=== PATIENT | male | born 1955 | race Caucasian/White ===

== ENCOUNTER 2022-07-04 10:56 | Inpatient (IN) | payer OTHER ==
[2022-07-04] MEDS ORDERED: ONDANSETRON 4 MG/2 ML VIAL IVPUSH ONE (11:52)
[2022-07-04] MEDS ORDERED: ACETAMINOPHEN 1000 MG/100 ML BAG IVPB ONE (11:53)
[2022-07-04] MEDS ORDERED: ONDANSETRON 4 MG/2 ML VIAL ONE (12:08)
[2022-07-04] MEDS ORDERED: ACETAMINOPHEN INJECTION 100 ML IVPB ONE (12:09)
[2022-07-04 12:37] LABS: BASO % 0.5 % (0-2.0); HEMATOCRIT 42.3 % (35.4-49); HEMOGLOBIN 15.1 GM/dL (11.7-16.9); LYMPH % 13.8 % (8-40); MCH 32.4 pg (25.7-33.7); MCHC 35.6 g/dl (32.0-35.9); MEAN PLT VOLUME 7.6 fl (7.5-11.1); MONO % 4.5 % (3.8-10.2); NEUT % 81.2 % (42.8-82.8); PLATELET COUNT 188 10^3/uL (134-434); RBC 4.64 M/mm3 (4.00-5.60); RDW 13.6 % (11.9-15.9); WHITE BLOOD COUNT 10.3 K/mm3 (4.0-10.0)
[2022-07-04 12:40] LABS: EPI CELLS 3 /uL (0-25.1); HYALINE CASTS 0 /uL (0-3.1); PH,URINE 5.5 (5.0-8.0); URINE APPEARANCE CLEAR; URINE BACTERIA 7 /uL (0-1359); URINE BILIRUBIN NEGATIVE (NEGATIVE); URINE COLOR YELLOW; URINE GLUCOSE (UA) NEGATIVE (NEGATIVE); URINE KETONE NEGATIVE (NEGATIVE); URINE LEUK ESTERASE NEGATIVE (NEGATIVE); URINE NITRITE NEGATIVE (NEGATIVE); URINE PROTEIN 1+ (NEGATIVE); URINE RBC 64 /uL (0-23.9); URINE UROBILINOGEN 0.2 mg/dL (0.2-1.0); URINE WBC 5 /uL (0-25.8)
[2022-07-04 13:00] LABS: CALCIUM 8.7 mg/dL (8.5-10.1)
[2022-07-04 13:01] LABS: BLOOD UREA NITROGEN 26.3 mg/dL (7-18)
[2022-07-04 13:04] LABS: CREATININE 1.5 mg/dL (0.55-1.3)
[2022-07-04 13:05] LABS: BILIRUBIN,TOTAL 0.9 mg/dL (0.2-1); TOT PROT 7.9 g/dl (6.4-8.2)
[2022-07-04] MEDS ORDERED: ONDANSETRON 4 MG/2 ML VIAL IVPUSH PRN (15:15)
[2022-07-04] MEDS ORDERED: ACETAMINOPHEN 325 MG TABLET (FP) PO PRN (15:15)
[2022-07-04] MEDS ORDERED: TAMSULOSIN HCL 0.4 MG CAP PO ONE (15:17)
[2022-07-04] MEDS ORDERED: TAMSULOSIN HCL 0.4 MG CAP ONE (15:57)
[2022-07-04] MEDS: LACTATED RINGERS SOLUTION 1,000 ML IV SCH (16:16)
[2022-07-04 19:01] VITALS: BMI 29.6
[2022-07-04] MEDS: KETOROLAC TROMETHAMINE 15 MG/ML VIAL IVPUSH PRN (22:05)
[2022-07-05] MEDS: LACTATED RINGERS SOLUTION 1,000 ML IV SCH ×2 (06:04→18:01)
[2022-07-05] MEDS: TAMSULOSIN HCL 0.4 MG CAP PO SCH (09:38)
[2022-07-05] MEDS ORDERED: ENOXAPARIN NA (PORCINE) 40 MG/0.4 ML DISP.SYRIN SQ SCH (10:00)
[2022-07-05 10:18] LABS: BASO % 0.4 % (0-2.0); EOS % 0.4 % (0-4.5); HEMATOCRIT 36.7 % (35.4-49); HEMOGLOBIN 13.1 GM/dL (11.7-16.9); LYMPH % 25.5 % (8-40); MCH 32.2 pg (25.7-33.7); MCHC 35.8 g/dl (32.0-35.9); MEAN CELL VOLUME 90.1 fl (80-96); MEAN PLT VOLUME 8.3 fl (7.5-11.1); MONO % 7.5 % (3.8-10.2); NEUT % 66.2 % (42.8-82.8); PLATELET COUNT 155 10^3/uL (134-434); RBC 4.08 M/mm3 (4.00-5.60); RDW 13.4 % (11.9-15.9); WHITE BLOOD COUNT 7.2 K/mm3 (4.0-10.0)
[2022-07-05] MEDS ORDERED: LACTATED RINGERS SOLUTION 1,000 ML IV SCH (10:22)
[2022-07-05 10:32] LABS: INR 1.16 (0.83-1.09); PROTHROMBIN TIME (PATIENT) 13.4 SEC (9.7-13.0)
[2022-07-05 10:34] LABS: ACTIVATED PTT 25.8 SECONDS (25.2-36.5)
[2022-07-05 10:44] LABS: ALBUMIN 3.3 g/dl (3.4-5.0); BLOOD UREA NITROGEN 24.3 mg/dL (7-18); CALCIUM 8.6 mg/dL (8.5-10.1)
[2022-07-05 10:47] LABS: CREATININE 1.3 mg/dL (0.55-1.3)
[2022-07-05 10:49] LABS: TOT PROT 6.3 g/dl (6.4-8.2)
[2022-07-05] MEDS ORDERED: cefTRIAXone SODIUM 1 GM VIAL ONE (12:41)
[2022-07-05] MEDS: CEFTRIAXONE 1 GM in DEXTROSE 5%-WATER - 50 ML IVPB SCH (12:47)
[2022-07-05] MEDS: KETOROLAC TROMETHAMINE 15 MG/ML VIAL IVPUSH PRN (22:47)
[2022-07-06] MEDS: LACTATED RINGERS SOLUTION 1,000 ML IV SCH ×2 (02:39→09:29)
[2022-07-06] MEDS: TAMSULOSIN HCL 0.4 MG CAP PO SCH (09:01)
[2022-07-06] MEDS: CEFTRIAXONE 1 GM in DEXTROSE 5%-WATER - 50 ML IVPB SCH (09:47)
[2022-07-06] MEDS ORDERED: PROPOFOL 20 ML ONE (14:19)
[2022-07-06] MEDS ORDERED: MIDAZOLAM HCL 2 MG/2 ML SINGLE DOSE VIAL ONE (14:19)
[2022-07-06] MEDS ORDERED: ONDANSETRON 4 MG/2 ML VIAL IVPUSH PRN ×3 (15:48→17:00)
[2022-07-06] MEDS ORDERED: LACTATED RINGERS SOLUTION 1,000 ML IV SCH ×3 (16:00→17:00)
[2022-07-06] MEDS ORDERED: KETOROLAC TROMETHAMINE 15 MG/ML VIAL IVPUSH PRN (17:00)
[2022-07-06] MEDS ORDERED: ACETAMINOPHEN 325 MG TABLET (FP) PO PRN (17:00)
[2022-07-06 22:53] VITALS: RESP 18
[2022-07-07] MEDS ORDERED: TAMSULOSIN HCL 0.4 MG CAP PO SCH (08:30)
[2022-07-07] MEDS ORDERED: CEFTRIAXONE 1 GM in DEXTROSE 5%-WATER - 50 ML IVPB SCH (10:00)
[2022-07-07 15:03] VITALS: BP 152/79; PULSE 72; TEMP 98.1
== END 2022-07-07 15:24 | disposition home or self-care (01) | DRG 694 ==
LOC: JER 10:56 → JERBED 15:07 → J8W 18:03
PROVIDERS: ADMIT Internal Medicine; ATTEND Internal Medicine
PROC: 0T9B80Z Drainage of Bladder with Drainage Device, Via Natural or Artificial Opening Endoscopic (ICD-10-PCS; 2022-07-06)
PROC: 0TJB8ZZ Inspection of Bladder, Via Natural or Artificial Opening Endoscopic (ICD-10-PCS; principal; 2022-07-06 14:00)
DX: N13.2 Hydronephrosis with renal and ureteral calculous obstruction (principal); N17.9 Acute kidney failure, unspecified; I10 Essential (primary) hypertension; R10.32 Left lower quadrant pain
CPT/HCPCS: 0241U-QW; 36415; 71046-TC-FY; 74177-TC; 76000-TC-FY; 80053; 81003; 83690; 83735; 84100; 84484; 85025; 85610; 85730; 87086; 93005; 93010; 94760; 99285-25; C1758; Q9967

== ENCOUNTER 2022-07-14 03:42 | Day surgery (SDC) | payer OTHER, BC ==
[2022-07-09 13:34] VITALS: BMI 29.5
[2022-07-14] MEDS ORDERED: KETOROLAC TROMETHAMINE 30 MG/1 ML VIAL ONE (09:31)
[2022-07-14] MEDS ORDERED: MIDAZOLAM HCL 2 MG/2 ML SINGLE DOSE VIAL ONE (09:31)
[2022-07-14 11:36] VITALS: RESP 20
[2022-07-14 13:18] VITALS: BP 166/77; PULSE 60; TEMP 98.7
== END 2022-07-14 12:40 | disposition home or self-care (01) ==
LOC: JASU-SURG 03:42
PROVIDERS: ATTEND Urology
PROC: 0TF4XZZ Fragmentation in Left Kidney Pelvis, External Approach (ICD-10-PCS; principal; 2022-07-14 09:15)
DX: N20.0 Calculus of kidney (principal)